=== PATIENT | female | born 1985 | race Caucasian/White ===

== ENCOUNTER 2024-11-24 08:44 | Day surgery (SDC) | payer BC ==
[2024-11-24] MEDS ORDERED: ACETAMINOPHEN INJECTION 100 ML ONE (09:31)
[2024-11-24] MEDS: ACETAMINOPHEN 1000 MG/100 ML BAG IVPB ONE (09:57)
[2024-11-24] MEDS: SODIUM CHLORIDE 0.9% 500 ML INFUS.BAG IV ONE (09:57)
[2024-11-24] MEDS ORDERED: ONDANSETRON 4 MG/2 ML VIAL ONE (10:03)
[2024-11-24 10:08] LABS: BASO % 0.2 % (0-2.0); EOS % 0.4 % (0-4.5); HEMATOCRIT 41.5 % (32.4-45.2); HEMOGLOBIN 14.1 GM/dL (10.7-15.3); LYMPH % 9.5 % (8-40); MCH 29.9 pg (25.7-33.7); MEAN CELL VOLUME 88.1 fl (80-96); MEAN PLT VOLUME 10.6 fl (7.5-11.1); MONO % 4.6 % (3.8-10.2); NEUT % 85.3 % (42.8-82.8); PH,URINE 7.5 (5.0-8.0); PLATELET COUNT 248 10^3/uL (134-434); RBC 4.72 M/mm3 (3.60-5.2); URINE APPEARANCE CLEAR; URINE BILIRUBIN NEGATIVE (NEGATIVE); URINE COLOR YELLOW; URINE GLUCOSE (UA) NEGATIVE (NEGATIVE); URINE KETONE NEGATIVE (NEGATIVE); URINE LEUK ESTERASE NEGATIVE (NEGATIVE); URINE NITRITE NEGATIVE (NEGATIVE); URINE PROTEIN TRACE (NEGATIVE); WHITE BLOOD COUNT 13.3 K/mm3 (4.0-10.0)
[2024-11-24] MEDS: ONDANSETRON 4 MG/2 ML VIAL IVPB ONE (10:11)
[2024-11-24 10:15] LABS: INR 1.15 (0.83-1.09); PROTHROMBIN TIME (PATIENT) 12.6 SEC (9.7-13.0)
[2024-11-24 10:18] LABS: ACTIVATED PTT 27.9 SECONDS (25.2-36.5)
[2024-11-24 10:24] LABS: POTASSIUM 3.8 mmol/L (3.5-5.1)
[2024-11-24 10:27] LABS: ALBUMIN 3.4 g/dl (3.4-5.0); BLOOD UREA NITROGEN 8.8 mg/dL (7-18)
[2024-11-24 10:30] LABS: CREATININE 0.8 mg/dL (0.55-1.3)
[2024-11-24 10:31] LABS: BILIRUBIN,TOTAL 0.9 mg/dL (0.2-1)
[2024-11-24 10:32] LABS: TOT PROT 6.5 g/dl (6.4-8.2)
[2024-11-24] MEDS ORDERED: PIPERACILLIN/TAZOB 3.375 GM 3.375 GM/50 ML BAG IVPB ONE (13:06)
[2024-11-24] MEDS: PIPERACILLIN/TAZOB 3.375 GM 3.375 GM in DEXTROSE 5%-WATER - 50 ML IVPB ONE (13:14)
[2024-11-24] MEDS ORDERED: LACTATED RINGERS SOLUTION 1,000 ML/1,000 ML INFUS.BAG IV SCH ×2 (14:00→16:30)
[2024-11-24] MEDS ORDERED: ROCURONIUM BROMIDE 50 MG/5 ML SYRINGE ONE (14:16)
[2024-11-24] MEDS ORDERED: PROPOFOL 20 ML ONE (14:16)
[2024-11-24] MEDS ORDERED: DEXAMETHASONE SOD PHOSPHATE 4 MG/1 ML VIAL ONE (14:16)
[2024-11-24] MEDS ORDERED: LIDOCAINE HCL/PF 2% SDV 5ML VIAL ONE (14:16)
[2024-11-24] MEDS ORDERED: MIDAZOLAM HCL 2 MG/2 ML SINGLE DOSE VIAL ONE (14:35)
[2024-11-24] MEDS ORDERED: BUPIVACAINE HCL/PF 0.25% (2.5MG/ML) 10 ML VIAL ONE (15:17)
[2024-11-24] MEDS: BUPIVACAINE HCL/PF 0.25% (2.5MG/ML) 10 ML VIAL IJ ONE ×2 (15:45)
[2024-11-24] MEDS ORDERED: ONDANSETRON 4 MG/2 ML VIAL IVPUSH PRN ×2 (15:46→16:53)
[2024-11-24] MEDS ORDERED: PROMETHAZINE HCL 25 MG/1 ML VIAL IVPB PRN ×2 (15:46→16:53)
[2024-11-24] MEDS ORDERED: ACETAMINOPHEN 1000 MG/100 ML BAG IVPB PRN ×2 (15:47→16:53)
[2024-11-24] MEDS ORDERED: LACTATED RINGERS SOLUTION 1,000 ML IV SCH (16:00)
[2024-11-24] MEDS ORDERED: ADENOSINE 6 MG/2 ML VIAL IVPUSH ONE (16:29)
[2024-11-24] MEDS ORDERED: SUGAMMADEX SODIUM 200 MG/2 ML VIAL ONE (16:33)
[2024-11-24] MEDS ORDERED: morphine SULFATE 4 MG/ML VIAL IVPUSH PRN (16:52)
[2024-11-24] MEDS ORDERED: KETOROLAC TROMETHAMINE 30 MG/1 ML VIAL ONE (17:41)
[2024-11-24] MEDS: KETOROLAC TROMETHAMINE 15 MG/ML VIAL IVPUSH SCH (17:43)
[2024-11-24] MEDS: PIPERACILLIN/TAZOB 3.375 GM 50 ML IVPB SCH (17:59)
[2024-11-24] MEDS: LACTATED RINGERS SOLUTION 1,000 ML/1,000 ML INFUS.BAG IV SCH (18:00)
[2024-11-24] MEDS ORDERED: PIPERACILLIN/TAZOB 3.375 GM 3.375 GM in DEXTROSE 5%-WATER - 50 ML IVPB SCH (18:00)
[2024-11-24 18:12] VITALS: RESP 18
[2024-11-24 18:47] VITALS: BMI 39.9
[2024-11-25 11:02] VITALS: BP 123/80; PULSE 85; TEMP 98.6
== END 2024-11-25 13:25 | disposition home or self-care (01) ==
LOC: JER 08:44 → SUATTDRO 13:41 → JASUSAT 13:41 → J8W 18:48 → J6S 18:51 → JASUSAT 11-25 13:25
PROVIDERS: ATTEND Internal Medicine
PROC: 0DTJ4ZZ Resection of Appendix, Percutaneous Endoscopic Approach (ICD-10-PCS; principal; 2024-11-24 15:30)
DX: K35.80 Unspecified acute appendicitis (principal)
CPT/HCPCS: 36415; 74177-TC; 80053; 81003; 83690; 84703; 85025; 85610; 85730; 86850; 86900; 86901; 88304-TC; 94760; 99285-25; J0131